=== PATIENT | female | born 1980 ===

== ENCOUNTER 2023-01-25 06:50 | Day surgery (SDC) | payer OTHER | END 2023-01-25 16:55 | disposition home or self-care (01) | LOC: CIR.AMB 06:50 | PROVIDERS: ATTEND Obstetrics & Gynecology | DX: N93.8 Other specified abnormal uterine and vaginal bleeding (principal); Z20.822 Contact with and (suspected) exposure to COVID-19; Z88.0 Allergy status to penicillin; Z88.6 Allergy status to analgesic agent ==